=== PATIENT | female | born 2005 | race Caucasian/White ===

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

== ENCOUNTER 2024-01-12 06:39 | Emergency (ER) | payer MEDICAID ==
[~2024-01-12] VITALS: Ht 154.9 cm; Wt 104.3 kg
[~2024-01-12 06:39] MED LIST changes: +FLUO-290 PO; +FLUO-365 PO; -FLUO10CA18 PO; -FLUO20CA22 PO
[2024-01-12 07:28] LABS: HEMATOCRIT 40.2 % (36.0-47.0); HEMOGLOBIN 13.7 g/dl (12.0-15.5); MEAN CORPUSCULAR HEMOGLOBIN 29.9 pg (27.0-33.0); MEAN CORPUSCULAR HGB CONC 34.1 g/dl (32.0-36.5); MEAN CORPUSCULAR VOLUME 87.8 fl (80.0-96.0); PLATELET COUNT, AUTOMATED 335 10^3/uL (150-450); RED BLOOD COUNT 4.58 10^6/uL (4.00-5.40)
[2024-01-12 07:45] LABS: ETHYL ALCOHOL (ETHANOL) 0.218 % (0.000-0.010)
[2024-01-12 07:46] LABS: BARBITURATES URINE NEGATIVE (NEGATIVE); BENZODIAZEPINES URINE NEGATIVE (NEGATIVE); COCAINE METABOLITE URINE NEGATIVE (NEGATIVE); METHADONE URINE NEGATIVE (NEGATIVE); OPIATES URINE NEGATIVE (NEGATIVE)
[2024-01-12 07:47] LABS: ALBUMIN 4.1 G/DL (3.2-5.2); ALKALINE PHOSPHATASE 63 U/L (46-116); ALT/SGPT 16 U/L (7.0-40); AST/SGOT 8 U/L (<34); BILIRUBIN,DIRECT < 0.1 MG/DL (<0.4); BILIRUBIN,TOTAL 0.3 MG/DL (0.3-1.2); BLOOD UREA NITROGEN 6 MG/DL (9-23); CALCIUM LEVEL 9.3 MG/DL (8.5-10.1); CARBON DIOXIDE LEVEL 23 MMOL/L (20-31); CHLORIDE LEVEL 111 MMOL/L (98-107); CREATININE FOR GFR 0.79 MG/DL (0.55-1.30); GLUCOSE, FASTING 100 MG/DL (60-100); PHENCYCLIDINE URINE NEGATIVE (NEGATIVE); POTASSIUM SERUM 4.2 MMOL/L (3.5-5.1); SALICYLATE LEVEL < 3.0 MG/DL (<30); SODIUM LEVEL 143 MMOL/L (136-145); TOTAL PROTEIN 7.3 G/DL (5.7-8.2)
[2024-01-12 07:49] LABS: THYROID STIMULATING HORMONE 37.105 uIU/ML (0.48-4.17)
[2024-01-12 07:55] LABS: AMPHETAMINES LEVEL URINE POSITIVE (NEGATIVE); CANNABINOIDS URINE POSITIVE (NEGATIVE)
[2024-01-12] MEDS: LIDOCAINE 2% W/EPINEPHRINE 20ML VIAL **PRES FREE INJ ONE (07:56)
[2024-01-12 08:04] LABS: HCG, SERUM QUALITATIVE NEGATIVE (NEGATIVE)
[2024-01-12] MEDS: ACETAMINOPHEN 500 MG TAB PO ONE (08:40)
[2024-01-12 10:54] VITALS: BP 139/76; TEMP 98.3; O2SAT 95
== END 2024-01-12 11:00 | disposition home or self-care (01) ==
LOC: M ED 06:39
DX: R45.88 Nonsuicidal self-harm (principal)

== ENCOUNTER 2024-01-24 10:57 | Emergency (ER) | payer MEDICAID ==
[~2024-01-24] VITALS: Ht 154.9 cm; Wt 92.6 kg
[2024-01-24 10:57] VITALS: TEMP 97.4; O2SAT 96
[2024-01-24 11:22] VITALS: BP 149/71
== END 2024-01-24 11:24 | disposition home or self-care (01) ==
LOC: M ED 10:57
DX: Z48.02 Encounter for removal of sutures (principal); F41.9 Anxiety disorder, unspecified; F32.A Depression, unspecified

== ENCOUNTER 2024-04-14 22:08 | Emergency (ER) | payer MEDICAID ==
[~2024-04-14] VITALS: Ht 152.4 cm; Wt 90.0 kg
[2024-04-14 22:19] VITALS: TEMP 98.5
[2024-04-15 02:02] LABS: BASO % 0.5 % (0.0-1.0); EOS % 0.3 % (0.0-3.0); HEMATOCRIT 36.4 % (36.0-47.0); HEMOGLOBIN 12.3 g/dl (12.0-15.5); LYMPH # 1.2 10^3/uL (1.5-5.0); MEAN CORPUSCULAR HEMOGLOBIN 29.6 pg (27.0-33.0); MEAN CORPUSCULAR HGB CONC 33.8 g/dl (32.0-36.5); MEAN CORPUSCULAR VOLUME 87.7 fl (80.0-96.0); MONO # 0.5 10^3/uL (0.0-0.8); MONO % 7.1 % (2.0-8.0); NEUTROPHILS # 4.8 10^3/uL (1.5-8.5); NEUTROPHILS % 72.8 % (36.0-66.0); PLATELET COUNT, AUTOMATED 229 10^3/uL (150-450); RED BLOOD COUNT 4.15 10^6/uL (4.00-5.40); WHITE BLOOD COUNT 6.5 10^3/uL (4.0-10.0)
[2024-04-15 02:33] LABS: BLOOD UREA NITROGEN 9 MG/DL (9-23); CARBON DIOXIDE LEVEL 25 MMOL/L (20-31); CHLORIDE LEVEL 107 MMOL/L (98-107); CREATININE FOR GFR 0.79 MG/DL (0.55-1.30); GLUCOSE, FASTING 113 MG/DL (60-100); POTASSIUM SERUM 3.7 MMOL/L (3.5-5.1); SODIUM LEVEL 136 MMOL/L (136-145)
[2024-04-15 02:35] LABS: ETHYL ALCOHOL (ETHANOL) 0.004 % (0.000-0.010); THYROID STIMULATING HORMONE 34.558 uIU/ML (0.48-4.17)
[2024-04-15 02:38] LABS: HCG, SERUM QUALITATIVE NEGATIVE (NEGATIVE)
[2024-04-15 02:42] LABS: AMPHETAMINES LEVEL URINE NEGATIVE (NEGATIVE); BARBITURATES URINE NEGATIVE (NEGATIVE); BENZODIAZEPINES URINE NEGATIVE (NEGATIVE); COCAINE METABOLITE URINE NEGATIVE (NEGATIVE); METHADONE URINE NEGATIVE (NEGATIVE); OPIATES URINE NEGATIVE (NEGATIVE); PHENCYCLIDINE URINE NEGATIVE (NEGATIVE)
[2024-04-15 02:44] LABS: CANNABINOIDS URINE POSITIVE (NEGATIVE)
[2024-04-15 05:15] VITALS: O2SAT 98
[2024-04-15 05:16] VITALS: BP 124/60
== END 2024-04-15 05:43 | disposition home or self-care (01) ==
LOC: M ED 22:08
DX: F41.1 Generalized anxiety disorder (principal); I25.2 Old myocardial infarction; E03.9 Hypothyroidism, unspecified; F32.A Depression, unspecified; F17.210 Nicotine dependence, cigarettes, uncomplicated

== ENCOUNTER 2024-05-29 09:20 | Emergency (ER) | payer MEDICAID ==
[~2024-05-29] VITALS: Ht 152.4 cm; Wt 82.8 kg
[2024-05-29 10:11] LABS: BASO % 0.3 % (0.0-1.0); EOS # 0.1 10^3/uL (0.0-0.5); HEMATOCRIT 40.6 % (36.0-47.0); HEMOGLOBIN 13.5 g/dl (12.0-15.5); LYMPH # 0.9 10^3/uL (1.5-5.0); LYMPH % 12.7 % (24.0-44.0); MEAN CORPUSCULAR HEMOGLOBIN 29.3 pg (27.0-33.0); MEAN CORPUSCULAR HGB CONC 33.3 g/dl (32.0-36.5); MEAN CORPUSCULAR VOLUME 88.1 fl (80.0-96.0); MONO # 0.6 10^3/uL (0.0-0.8); MONO % 8.4 % (2.0-8.0); NEUTROPHILS # 5.2 10^3/uL (1.5-8.5); NEUTROPHILS % 76.9 % (36.0-66.0); PLATELET COUNT, AUTOMATED 211 10^3/uL (150-450); RED BLOOD COUNT 4.61 10^6/uL (4.00-5.40); WHITE BLOOD COUNT 6.7 10^3/uL (4.0-10.0)
[2024-05-29 10:38] LABS: ETHYL ALCOHOL (ETHANOL) 0.085 % (0.000-0.010)
[2024-05-29 10:39] LABS: SALICYLATE LEVEL 20.5 MG/DL (<30)
[2024-05-29 10:40] LABS: ALBUMIN 3.5 G/DL (3.2-5.2); ALKALINE PHOSPHATASE 69 U/L (35-104); ALT/SGPT 35 U/L (7.0-40); AST/SGOT 32 U/L (<34); BILIRUBIN,DIRECT < 0.1 MG/DL (<0.4); BILIRUBIN,TOTAL 0.2 MG/DL (0.3-1.2); BLOOD UREA NITROGEN 6 MG/DL (9-23); CALCIUM LEVEL 8.8 MG/DL (8.5-10.1); CARBON DIOXIDE LEVEL 25 MMOL/L (20-31); CHLORIDE LEVEL 104 MMOL/L (98-107); CREATININE FOR GFR 0.57 MG/DL (0.55-1.30); GLUCOSE, FASTING 102 MG/DL (60-100); POTASSIUM SERUM 3.9 MMOL/L (3.5-5.1); SODIUM LEVEL 137 MMOL/L (136-145); TOTAL PROTEIN 7.6 G/DL (5.7-8.2)
[2024-05-29 10:41] LABS: CPK CREATINE PHOSPHOKINASE 56 U/L (34-145)
[2024-05-29 11:22] LABS: INR 0.92; PROTHROMBIN TIME 12.7 SECONDS (12.5-14.5)
[2024-05-29 12:13] LABS: AMPHETAMINES LEVEL URINE NEGATIVE (NEGATIVE); BARBITURATES URINE NEGATIVE (NEGATIVE); BENZODIAZEPINES URINE NEGATIVE (NEGATIVE); COCAINE METABOLITE URINE NEGATIVE (NEGATIVE); METHADONE URINE NEGATIVE (NEGATIVE); OPIATES URINE NEGATIVE (NEGATIVE); PHENCYCLIDINE URINE NEGATIVE (NEGATIVE)
[2024-05-29 12:19] LABS: CANNABINOIDS URINE POSITIVE (NEGATIVE)
[2024-05-29] MEDS ORDERED: PERI0.126 PO (13:10)
[2024-05-29 13:29] VITALS: BP 165/92; TEMP 98.7; O2SAT 84
== END 2024-05-29 13:35 | disposition home or self-care (01) ==
LOC: M ED 09:20
DX: F10.10 Alcohol abuse, uncomplicated (principal); K05.00 Acute gingivitis, plaque induced; E03.9 Hypothyroidism, unspecified; F32.A Depression, unspecified; F41.9 Anxiety disorder, unspecified; F17.200 Nicotine dependence, unspecified, uncomplicated; Y90.4 Blood alcohol level of 80-99 mg/100 ml

== ENCOUNTER 2024-06-13 13:42 | Emergency (ER) | payer MEDICAID ==
[~2024-06-13] VITALS: Ht 152.4 cm; Wt 82.4 kg
[~2024-06-13 13:42] MED LIST changes: +PERI0.126 PO
[2024-06-13 15:52] LABS: Trichomonas vaginalis (AMP) NOT DETECTED (NEGATIVE)
[2024-06-13 16:06] LABS: HIV 1&2 SCREEN NEGATIVE (NEGATIVE)
[2024-06-13 16:16] LABS: GC DNA AMPLIFICATION NEGATIVE (NEGATIVE)
[2024-06-13] MEDS ORDERED: DOXYCYCLINE HYCLATE 100MG TABLET PO ONE (16:30)
[2024-06-13] MEDS ORDERED: BICILLIN L-A 2,400,000 UNIT/4 ML SYRINGE (PENICILLIN G BENZATINE) IM ONE (16:30)
[2024-06-13] MEDS ORDERED: CEPH500C PO (16:50)
[2024-06-13] MEDS: cefTRIAXone 500MG VIAL IM ONE (17:02)
[2024-06-13] MEDS: LIDOCAINE 1% SDV 5ML VIAL DILUENT ONE (17:02)
[2024-06-13 17:05] VITALS: BP 138/88; TEMP 97.1; O2SAT 98
[2024-06-13 17:06] LABS: HEPATITIS B SURFACE ANTIBODY NEGATIVE (POSITIVE)
[2024-06-13] MEDS: BICILLIN L-A 2,400,000 UNIT/4 ML SYRINGE (PENICILLIN G BENZATINE) IM ONE (17:06)
[2024-06-13 17:18] LABS: HEPATITIS B SURFACE ANTIGEN NEGATIVE (NEGATIVE)
[2024-06-13 17:38] LABS: HEPATITIS C VIRUS ABY INDEX 0.03 INDEX (<0.8)
== END 2024-06-13 17:13 | disposition home or self-care (01) ==
LOC: M ED 13:42
DX: L03.115 Cellulitis of right lower limb (principal); Z11.3 Encounter for screening for infections with a predominantly sexual mode of transmission; E03.9 Hypothyroidism, unspecified; F17.210 Nicotine dependence, cigarettes, uncomplicated; F12.10 Cannabis abuse, uncomplicated; Z79.2 Long term (current) use of antibiotics
CPT/HCPCS: 86706; 86780; 86803; 87340; 87389; 87661; 87810; 87850; 96372; 99283; J0561; J0696

== ENCOUNTER 2024-06-21 09:12 | Emergency (ER) | payer MEDICAID ==
[~2024-06-21] VITALS: Ht 149.9 cm; Wt 85.0 kg
[~2024-06-21 09:12] MED LIST changes: +CEPH500C PO
[2024-06-21 09:18] VITALS: BP 157/80; TEMP 97.2; O2SAT 98
[2024-06-21 10:12] LABS: HEMATOCRIT 39.4 % (36.0-47.0); HEMOGLOBIN 12.8 g/dl (12.0-15.5); MEAN CORPUSCULAR HEMOGLOBIN 29.1 pg (27.0-33.0); MEAN CORPUSCULAR HGB CONC 32.5 g/dl (32.0-36.5); MEAN CORPUSCULAR VOLUME 89.5 fl (80.0-96.0); PLATELET COUNT, AUTOMATED 204 10^3/uL (150-450); WHITE BLOOD COUNT 5.9 10^3/uL (4.0-10.0)
[2024-06-21 10:44] LABS: BLOOD UREA NITROGEN 6 MG/DL (9-23); CALCIUM LEVEL 8.8 MG/DL (8.5-10.1); CARBON DIOXIDE LEVEL 22 MMOL/L (20-31); CHLORIDE LEVEL 106 MMOL/L (98-107); CREATININE FOR GFR 0.68 MG/DL (0.55-1.30); GLUCOSE, FASTING 85 MG/DL (60-100); POTASSIUM SERUM 4.1 MMOL/L (3.5-5.1); SODIUM LEVEL 138 MMOL/L (136-145)
== END 2024-06-21 11:23 | disposition left against medical advice (07) ==
LOC: M ED 09:12 → EDBD 09:12 → M ED 11:23
DX: Z53.21 Procedure and treatment not carried out due to patient leaving prior to being seen by health care provider (principal)

== ENCOUNTER 2024-06-22 19:13 | Emergency (ER) | payer MEDICAID ==
[~2024-06-22] VITALS: Ht 149.9 cm; Wt 82.0 kg
[2024-06-22 20:01] LABS: HEMATOCRIT 41.3 % (36.0-47.0); HEMOGLOBIN 13.3 g/dl (12.0-15.5); MEAN CORPUSCULAR HEMOGLOBIN 28.8 pg (27.0-33.0); MEAN CORPUSCULAR HGB CONC 32.2 g/dl (32.0-36.5); MEAN CORPUSCULAR VOLUME 89.4 fl (80.0-96.0); PLATELET COUNT, AUTOMATED 186 10^3/uL (150-450); RED BLOOD COUNT 4.62 10^6/uL (4.00-5.40); WHITE BLOOD COUNT 4.4 10^3/uL (4.0-10.0)
[2024-06-22 20:27] LABS: LIPASE 26 U/L (12-53)
[2024-06-22 20:28] LABS: CK-MB VALUE MASS < 1.0 NG/ML (<3.6)
[2024-06-22 20:40] LABS: ALBUMIN 3.9 G/DL (3.2-5.2); ALKALINE PHOSPHATASE 73 U/L (35-104); ALT/SGPT 37 U/L (7.0-40); AST/SGOT 31 U/L (<34); BILIRUBIN,DIRECT 0.3 MG/DL (<0.4); BILIRUBIN,TOTAL 0.9 MG/DL (0.3-1.2); BLOOD UREA NITROGEN < 5 MG/DL (9-23); CALCIUM LEVEL 9.8 MG/DL (8.5-10.1); CARBON DIOXIDE LEVEL 23 MMOL/L (20-31); CHLORIDE LEVEL 101 MMOL/L (98-107); CPK CREATINE PHOSPHOKINASE 55 U/L (34-145); CREATININE FOR GFR 0.66 MG/DL (0.55-1.30); GLUCOSE, FASTING 74 MG/DL (60-100); MB/CK RELATIVE INDEX 1.81 (< OR =4); POTASSIUM SERUM 4.7 MMOL/L (3.5-5.1); SODIUM LEVEL 134 MMOL/L (136-145); TOTAL PROTEIN 7.8 G/DL (5.7-8.2)
[2024-06-22 20:45] LABS: ATYPICAL LYMPH 3 % (0-5); EOSINOPHILS 1 % (0-3); LYMPHOCYTES 18 % (16-44); MONOCYTES 7 % (0-5); NEUTROPHILS 71 % (28-66); PLATELET ESTIMATE NORMAL (NORMAL)
[2024-06-22 20:57] LABS: HCG, SERUM QUALITATIVE NEGATIVE (NEGATIVE)
[2024-06-23] MEDS ORDERED: ISOVUE-370 76% 100ML VIAL As Ordered ONE (00:59)
[2024-06-23 02:17] VITALS: BP 124/68; TEMP 97.9; O2SAT 99
== END 2024-06-23 02:19 | disposition home or self-care (01) ==
LOC: M ED 19:13
DX: R07.89 Other chest pain (principal); F41.9 Anxiety disorder, unspecified; F32.A Depression, unspecified; F17.210 Nicotine dependence, cigarettes, uncomplicated; F10.10 Alcohol abuse, uncomplicated
CPT/HCPCS: 36415; 71046; 71275; 80048; 80076; 81001; 82550; 82553; 83690; 84484; 84703; 85025; 85379; 93005; 99284; Q9967